=== PATIENT | male | born 1940 | race African-American/Black ===

== ENCOUNTER → 2020-11-17 | Outpatient (CLI) | payer MEDICARE, OTHER | END | disposition home or self-care (01) | LOC: CARD 10:42 | PROVIDERS: ATTEND Specialist | DX: I35.0 Nonrheumatic aortic (valve) stenosis (principal) | CPT/HCPCS: 93306 ==

== ENCOUNTER 2023-01-06 21:13 | Emergency (ER) | payer MEDICARE, OTHER ==
[~2023-01-06] VITALS: Ht 167.6 cm; Wt 72.0 kg
[2023-01-06 21:18] VITALS: O2SAT 100
[2023-01-06 21:57] LABS: BASOPHILS % 0.4 % (0.0-2.0); EOSINOPHILS % 2.2 % (0.0-5.0); HEMOGLOBIN. 13.2 g/dL (14.0-18.0); LYMPHOCYTES % 17.2 % (20.0-50.0); MEAN CORPUSCULAR HEMOGLOBIN 30.2 pg (28.0-32.0); MEAN CORPUSCULAR VOLUME 91.9 fL (80.0-94.0); MEAN PLATELET VOLUME 10.2 fl (7.4-10.4); MONOCYTES % 9.2 % (2.0-8.0); PLATELET 193 x1000/uL (130-400); RED BLOOD CELL COUNT 4.36 mill/uL (4.7-6.1); RED CELL DISTRIBUTION WIDTH 13.8 % (11.6-14.6)
[2023-01-06 22:00] LABS: CHLORIDE 106 mEq/L (98-107)
[2023-01-06 22:55] VITALS: BP 190/82; PULSE 67; RESP 19; TEMP 98.1
== END 2023-01-06 23:00 | disposition home or self-care (01) ==
LOC: ER 21:13
DX: K62.5 Hemorrhage of anus and rectum (principal); I10 Essential (primary) hypertension; Z85.9 Personal history of malignant neoplasm, unspecified
CPT/HCPCS: 36415; 71045; 80053; 82270; 84484; 85025; 86850; 86900; 99284

== ENCOUNTER 2023-01-20 02:48 | Inpatient (IN) | payer MEDICARE, OTHER ==
[~2023-01-20] VITALS: Ht 167.6 cm; Wt 70.8 kg
[2023-01-20 04:33] LABS: BASOPHILS % 0.5 % (0.0-2.0); EOSINOPHILS % 2.3 % (0.0-5.0); HEMATOCRIT. 40.8 % (42.0-52.0); HEMOGLOBIN. 13.8 g/dL (14.0-18.0); LYMPHOCYTES % 17.5 % (20.0-50.0); MEAN CORPUSCULAR VOLUME 91.4 fL (80.0-94.0); MEAN PLATELET VOLUME 9.8 fl (7.4-10.4); MONOCYTES % 6.1 % (2.0-8.0); NEUTROPHILS % 73.6 % (40.0-76.0); PLATELET 208 x1000/uL (130-400); RED BLOOD CELL COUNT 4.47 mill/uL (4.7-6.1); RED CELL DISTRIBUTION WIDTH 14.1 % (11.6-14.6)
[2023-01-20 04:42] LABS: PARTIAL THROMBOPLASTIN TIME 28.5 sec (23.4-31.0); PROTHROMBIN TIME 10.3 sec (9.6-11.0)
[2023-01-20 04:45] LABS: CHLORIDE 108 mEq/L (98-107)
[2023-01-20 05:26] LABS: CLARITY URINE CLEAR (CLEAR); COLOR URINE YELLOW (YELLOW); KETONES URINE NEGATIVE (NEGATIVE); LEUKOCYTE ESTERASE URINE NEGATIVE (NEGATIVE); NITRITE URINE NEGATIVE (NEGATIVE); OCCULT BLOOD URINE NEGATIVE (NEGATIVE); PH URINE 6.5 (4.5-8.0); PROTEIN URINE NEGATIVE (NEGATIVE); SPECIFIC GRAVITY URINE 1.011 (1.005-1.030); UROBILINOGEN URINE 0.2 E.U./dL (0.2-1.0)
[2023-01-20] MEDS ORDERED: LABETALOL 5MG/ML SYR 20 MG/4 ML SYRINGE IV ONE (06:45)
[2023-01-20] MEDS ORDERED: AMLO5TAB88 PO (10:57)
[2023-01-20] MEDS ORDERED: GUAIFENESIN 200MG/10ML SUGAR FREE UDC PO PRN (11:00)
[2023-01-20] MEDS ORDERED: ACETAMINOPHEN 325MG TABLET PO PRN ×2 (11:00)
[2023-01-20] MEDS ORDERED: MAGNESIUM/ALUMINUM HYDROXIDE/SIMETHICONE 30ML UDC PO PRN (11:00)
[2023-01-20] MEDS: AMLODIPINE 5MG TABLET PO SCH (11:00)
[2023-01-20] MEDS ORDERED: ONDANSETRON HCL 4MG/2ML INJ IV PRN (11:00)
[2023-01-20 16:45] VITALS: BP 190/85; PULSE 70; RESP 18; TEMP 97.9
[2023-01-20 17:00] VITALS: BP 190/85; PULSE 70; RESP 18; TEMP 97.9
[2023-01-20] MEDS: CLONIDINE 0.1MG TABLET PO PRN (17:17)
[2023-01-20 20:00] VITALS: BP 137/72; PULSE 64; RESP 19; TEMP 98.2
[2023-01-20] MEDS: LOSARTAN POTASSIUM 25 MG TABLET PO SCH (21:05)
[2023-01-20] MEDS ORDERED: DORZ10DR8 EACHEYE (21:18)
[2023-01-20] MEDS ORDERED: OLME20TA22 MT (21:18)
[2023-01-20] MEDS ORDERED: LATA2.5D14 EACHEYE (21:18)
[2023-01-21] VITALS: BP 125/63; PULSE 55; RESP 18; TEMP 97.1
[2023-01-21 04:00] VITALS: BP 118/59; PULSE 60; RESP 19; TEMP 98.4
[2023-01-21] MEDS ORDERED: *PATIENT'S OWN MEDICATION STORAGE XX SCH (05:00)
[2023-01-21 06:48] LABS: BASOPHILS % 0.5 % (0.0-2.0); EOSINOPHILS % 2.8 % (0.0-5.0); HEMATOCRIT. 39.3 % (42.0-52.0); HEMOGLOBIN. 13.2 g/dL (14.0-18.0); LYMPHOCYTES % 25.2 % (20.0-50.0); MEAN CORPUSCULAR HEMOGLOBIN 30.8 pg (28.0-32.0); MEAN CORPUSCULAR VOLUME 91.7 fL (80.0-94.0); MEAN PLATELET VOLUME 9.7 fl (7.4-10.4); MONOCYTES % 9.7 % (2.0-8.0); NEUTROPHILS % 61.8 % (40.0-76.0); PLATELET 197 x1000/uL (130-400); RED BLOOD CELL COUNT 4.28 mill/uL (4.7-6.1); RED CELL DISTRIBUTION WIDTH 14.1 % (11.6-14.6)
[2023-01-21 07:15] LABS: CHLORIDE 109 mEq/L (98-107)
[2023-01-21 07:20] LABS: PHOSPHORUS 3.8 mg/dL (2.5-4.9)
[2023-01-21 08:00] VITALS: BP 137/67; PULSE 62; RESP 19; TEMP 98.4
[2023-01-21] MEDS: AMLODIPINE 5MG TABLET PO SCH (09:52)
[2023-01-21 10:31] LABS: T4 FREE 1.07 ng/dL (0.76-1.46)
[2023-01-21] MEDS: DORZOLAM/TIMOLOL 2.23/0.68% OPHTH DROPS 10ML BOTHEYE SCH ×2 (11:40→21:17)
[2023-01-21 12:00] VITALS: BP 137/67; PULSE 62; RESP 20; TEMP 98.6
[2023-01-21] MEDS ORDERED: ENOXAPARIN 40MG/0.4ML SYR SUBCUT SCH (12:00)
[2023-01-21 14:21] LABS: HEPATITIS B SURFACE ANTIGEN NEGATIVE
[2023-01-21 16:00] VITALS: BP 144/75; PULSE 66; RESP 20; TEMP 98.6
[2023-01-21 20:00] VITALS: BP 141/70; PULSE 75; RESP 18; TEMP 97.2
[2023-01-21 21:17] LABS: CREATINE KINASE MB FRACTION 1.6 ng/mL (0.5-3.6)
[2023-01-21] MEDS: LOSARTAN POTASSIUM 25 MG TABLET PO SCH (21:17)
[2023-01-21] MEDS: LATANOPROST 0.005% OPHTH DROPS 2.5ML BOTHEYE SCH (21:17)
[2023-01-22] VITALS (7 sets, daily range): BP systolic 115–166; BP diastolic 44–89; PULSE 56–81; RESP 17–18; TEMP 97.2–98.4
[2023-01-22 00:26] LABS: CREATINE KINASE MB FRACTION 1.7 ng/mL (0.5-3.6)
[2023-01-22 07:46] LABS: CREATINE KINASE MB FRACTION 1.4 ng/mL (0.5-3.6)
[2023-01-22] MEDS: DORZOLAM/TIMOLOL 2.23/0.68% OPHTH DROPS 10ML BOTHEYE SCH ×2 (08:34→20:38)
[2023-01-22] MEDS: AMLODIPINE 10MG TABLET PO SCH (08:34)
[2023-01-22] MEDS: CLONIDINE 0.1MG TABLET PO PRN (08:40)
[2023-01-22] MEDS ORDERED: NITROGLYCERIN SPRAY/4.9GM CAN TL ONE ×2 (11:30→13:00)
[2023-01-22] MEDS: LOSARTAN POTASSIUM 50 MG TABLET PO SCH (16:27)
[2023-01-22] MEDS: LATANOPROST 0.005% OPHTH DROPS 2.5ML BOTHEYE SCH (20:37)
[2023-01-23] VITALS: BP 143/70; PULSE 62; RESP 19; TEMP 98.9
[2023-01-23 04:00] VITALS: BP 125/52; PULSE 60; RESP 18; TEMP 97.2
[2023-01-23 08:00] VITALS: BP 152/80; PULSE 69; RESP 20; TEMP 97.4
[2023-01-23] MEDS: DORZOLAM/TIMOLOL 2.23/0.68% OPHTH DROPS 10ML BOTHEYE SCH ×2 (09:50→21:24)
[2023-01-23] MEDS: AMLODIPINE 10MG TABLET PO SCH (09:50)
[2023-01-23 12:00] VITALS: BP 144/65; PULSE 58; RESP 18; TEMP 97.4
[2023-01-23] MEDS ORDERED: HEPARIN 1000 UNITS/ML 10ML ONE (14:37)
[2023-01-23] MEDS ORDERED: IODIXANOL 320MG/ML 100 ML BOTTLE IV ONE (14:37)
[2023-01-23] MEDS ORDERED: LIDOCAINE HCL 1% 10 MG/ML 10ML VIAL ONE (14:38)
[2023-01-23] MEDS ORDERED: FENTANYL CITRATE/PF 50MCG/ML 2ML VIAL ONE (15:51)
[2023-01-23] MEDS ORDERED: MIDAZOLAM HCL 2 MG/2 ML VIAL ONE (15:52)
[2023-01-23] MEDS ORDERED: ATROPINE SULFATE 1MG/10ML SYR IV PRN (16:00)
[2023-01-23] MEDS ORDERED: LIDOCAINE HCL 1% 20ML VIAL (Pyxis) INJ ONE (16:05)
[2023-01-23 17:00] VITALS: BP 143/70; PULSE 62; RESP 18; TEMP 98
[2023-01-23] MEDS: LOSARTAN POTASSIUM 50 MG TABLET PO SCH (18:02)
[2023-01-23 20:00] VITALS: BP 149/74; PULSE 63; RESP 18; TEMP 97.6
[2023-01-23] MEDS: LATANOPROST 0.005% OPHTH DROPS 2.5ML BOTHEYE SCH (21:24)
[2023-01-24] VITALS: BP 151/77; PULSE 61; RESP 18; TEMP 97.9
[2023-01-24 04:00] VITALS: BP 167/80; PULSE 65; RESP 18; TEMP 97.9
[2023-01-24 08:00] VITALS: BP 157/75; PULSE 83; RESP 20; TEMP 97.5
[2023-01-24] MEDS: DORZOLAM/TIMOLOL 2.23/0.68% OPHTH DROPS 10ML BOTHEYE SCH (08:56)
[2023-01-24] MEDS: AMLODIPINE 10MG TABLET PO SCH (08:57)
[2023-01-24 12:00] VITALS: BP 153/70; PULSE 67; RESP 22; TEMP 97
[2023-01-24] MEDS ORDERED: AMLO10TA80 PO (13:38)
[2023-01-24] MEDS ORDERED: LOSA50TA41 PO (13:38)
[2023-01-24 14:46] VITALS: BP 153/70; PULSE 67; TEMP 97; O2SAT 100
== END 2023-01-24 17:28 | disposition home or self-care (01) | DRG 287 ==
LOC: ER 02:48 → 7WST 09:17 → EDBEDREQ 10:18 → EDBEDREQTM 10:18 → SUPCPDRO 10:48 → ER 16:46
PROVIDERS: ADMIT Internal Medicine; ATTEND Internal Medicine
PROC: 4A023N8 Measurement of Cardiac Sampling and Pressure, Bilateral, Percutaneous Approach (ICD-10-PCS; principal; 2023-01-23)
PROC: B2111ZZ Fluoroscopy of Multiple Coronary Arteries using Low Osmolar Contrast (ICD-10-PCS; 2023-01-23)
PROC: B2151ZZ Fluoroscopy of Left Heart using Low Osmolar Contrast (ICD-10-PCS; 2023-01-23)
DX: I16.0 Hypertensive urgency (principal); I35.0 Nonrheumatic aortic (valve) stenosis; E78.5 Hyperlipidemia, unspecified; I25.10 Atherosclerotic heart disease of native coronary artery without angina pectoris; Z88.6 Allergy status to analgesic agent; Z88.8 Allergy status to other drugs, medicaments and biological substances; Z79.899 Other long term (current) drug therapy
CPT/HCPCS: 36415; 71045; 75571; 80048; 80053; 80061; 81003; 82550; 82553; 83036; 83735; 83880; 84100; 84134; 84439; 84443; 84484; 85025; 85379; 86803; 87340; 93005; 93306; 93970; 99285; J1644; J2250; J3010; J3490; Q9967